=== PATIENT | male | born 1945 | race Caucasian/White ===

== ENCOUNTER 2016-04-15 12:08 | Emergency (ER) | payer MEDICARE, OTHER ==
[~2016-04-15] VITALS: Ht 175.3 cm; Wt 99.8 kg
[~2016-04-15 12:08] MED LIST: EPINEPHrine 0.1 MG/ML 10 ML (HOSPIRA) SYR IJ ONE; ETOMIDATE IV SOLN 20 MG/10 ML VIAL IV ONE; LIDOCAINE BOLUS 100 MG/5 ML (IMS) SYR INJ ONE; MAG SULFATE 1 GM/100 ML IV PRE-MIX BAG IV ONE; SUCCINYLCHOLINE INJ 100 MG/5 ML SYR INJ ONE
--- NOTE | 2016-04-15 12:45 | ED CPR ---
HPI-CPR General Stated Complaint: CODE BLUE Source of Information: Patient Exam Limitations: No Limitations History of Present Illness Time Seen by Provider: 12:08 Initial Comments Here by EMS with CPR in progress. This was a witnessed coded at his residence. Patient has not been feeling well for the past couple days per his . On EMS arrival and initial contact, patient was getting his blood pressure taken when he slumped over and pulse was lost. CPR initiated at the scene. Patient did get IO placement by EMS as well as epinephrine and shocks. They did have return of spontaneous circulation briefly and then lost pulse on arrival. Second round of epinephrine initiated on their arrival. On arrival here, patient had CPR in progress with mottling of the scan from the nipple line.. He was being bagged with bag valve mask and oropharyngeal airway in place. He had markedly gastric distention. He had been vomiting. Initial Complaints: Collapsed Witnessed Arrest: Yes Bystander CPR: Yes Down-Time Before ACLS: 0 Paramedics Initial Findings: Weak Pulse Pre Hospital Treatment: CPR/Thumper, Defibrillation, Oxygen, IV Fluids, Epinephrine (mg) Allergies and Home Medications Allergies Coded Allergies: No Known Drug Allergies (Unverified , 04/15/16) Review of Systems Constitutional: see HPI Other Comments Unable to complete review of systems due to clinical condition. Past Ftfxisq-Neibvi-Apohnr Hx Patient Social History Smoking Status: Unknown if Ever Smoked Respiratory Hx Respiratory Disorders: No Cardiovascular Hx Cardiac Disorders: Yes Cardiac Disorders: High Cholesterol, Hypertension Endocrine Hx Endocrine Disorders: Yes Endocrine Disorders: Diabetes, Non-Insulin dep Family Medical History Significant Family History: CAD Over 55 Years Old Other History per records reviewed in discussion with primary physician. Patient unable to give history due to clinical condition. Physical Exam Vital Signs Capillary Refill : General Appearance: Severe Distress Other (unresponsive with CPR in progress) Respiratory: Other (lungs clear bilateral with bagging. Occasional agonal respiration) Cardiovascular: Other (pulseless) Gastrointestinal: Distended Neurologic/Psychiatric: Other (unresponsive) Date of ETT Placement: Apr 15, 2016 Time of ETT Placement: 12:18 Intubation Method: orotracheal Tube Size: 7.5 Medications: Etomidate, Succinylcholine Positive End Tide CO2: Yes Breath Sounds after Intubation: bilateral-equal Intubation Complications: no complications Post Intubation Xray: No Progress Intubated during cardiac arrest. O2 sat noted increased after intubation. Progress/Results/Core Measures Results/Orders Lab Results Laboratory Tests Test 04/15/16 12:24 Range/Units Glucometer 197 H 70-110 MG/DL Progress Note : Progress Note Seen and evaluated on arrival by EMS. CPR in progress. 1210 noted agonal respirations with faint carotid pulse. [id number]: V. fib noted and patient received shock. CPR initiated. 1218: Patient intubated. Jaw tightness noted. He did receive etomidate and succinylcholine. 7.5 to 2 attempts with video scope at 27 cm at the lip. Tube witnessed record. O2 sat increased after intubation into the upper 80s. 1222: Patient had repeat shocked for V. fib. Magnesium initiated is V. fib looked somewhat torsades like. OG tube placed. 1226: Epinephrine has been given twice more. Patient now in asystole. End- tidal CO2 less than 10. I did discuss the concerns with the . She was clear about his position that he did not want heroic measures if it appeared futile and she was okay with stopping CPR if we were unable to get a pulse back. 1230: Patient remains in asystole with end-tidal CO2 of 8 indicating clear signs of . CPR stopped. Time of 1230: informed. Pastoral care with her. 1242: I did discuss the case with Dr. Orr. He will sign certificate. Patient has strong family history of her disease and his father of heart related event. This appears to be cardiac related . Departure Impression Impression: Primary Impression: Cardiopulmonary arrest Disposition: 20 Condition: Departure-Patient Inst. Referrals: HAYLIE ORR MD (PCP/Family) Primary Care Physician PADMA DOYLE MD Apr 15, 2016 12:44
[2016-04-15 14:46] VITALS: BP 0/0
== END 2016-04-15 14:46 | disposition expired ==
LOC: EDUNIT# 12:09 → ER 12:10
DX: I46.9 Cardiac arrest, cause unspecified (principal); I10 Essential (primary) hypertension; E11.9 Type 2 diabetes mellitus without complications
CPT/HCPCS: 31500; 36680; 82962; 93041; 96360; 99291